=== PATIENT | male | born 1960 | race Two or more races ===

== ENCOUNTER 2019-02-16 11:14 | Emergency (ER) | payer OTHER ==
[~2019-02-16] VITALS: Ht 177.8 cm; Wt 9.1 kg
[~2019-02-16 11:14] MED LIST: HUMALOG100 U/ML; LANTUS100 U/ML; LOTREL 5/40 MG1 CAP; NEURONTIN800 MG
== END 2019-02-16 13:46 | disposition home or self-care (01) ==
LOC: ER 11:14
DX: S90.31XA Contusion of right foot, initial encounter (principal); E11.65 Type 2 diabetes mellitus with hyperglycemia; W23.0XXA Caught, crushed, jammed, or pinched between moving objects, initial encounter; Y93.89 Activity, other specified; Y92.414 Local residential or business street as the place of occurrence of the external cause; Y99.8 Other external cause status

== ENCOUNTER 2022-08-23 08:35 | Emergency (ER) | payer OTHER ==
[~2022-08-23] VITALS: Ht 177.8 cm; Wt 80.3 kg
[2022-08-23] MEDS ORDERED: LANTUS SOL100 UNIT/1 (08:45)
[2022-08-23] MEDS ORDERED: IRBESARTAN-HCT1 EAC1 PO (08:46)
== END 2022-08-23 09:16 | disposition home or self-care (01) ==
LOC: ER 08:35
DX: K52.9 Noninfective gastroenteritis and colitis, unspecified (principal); E11.9 Type 2 diabetes mellitus without complications; Z79.4 Long term (current) use of insulin; I10 Essential (primary) hypertension

== ENCOUNTER 2022-08-31 12:08 | Emergency (ER) | payer OTHER ==
[~2022-08-31] VITALS: Ht 175.3 cm; Wt 78.5 kg
[~2022-08-31 12:08] MED LIST changes: +IRBESARTAN-HCT1 EAC1 PO; +LANTUS SOL100 UNIT/1
[2022-08-31] MEDS ORDERED: LOSARTAN POTASS25 MG (12:40)
[2022-08-31] MEDS ORDERED: METRONIDAZOLE500 MG PO (15:48)
[2022-08-31] MEDS ORDERED: PEPCID AC20 MG PO (15:48)
== END 2022-08-31 15:56 | disposition home or self-care (01) ==
LOC: ER 12:08
DX: R19.7 Diarrhea, unspecified (principal); E11.9 Type 2 diabetes mellitus without complications; Z79.4 Long term (current) use of insulin; I10 Essential (primary) hypertension

== ENCOUNTER 2022-09-13 09:15 | Outpatient (CLI) | payer OTHER ==
[~2022-09-13 09:15] MED LIST changes: +LOSARTAN POTASS25 MG; +METRONIDAZOLE500 MG PO; +PEPCID AC20 MG PO
== END 2022-09-13 09:22 | disposition home or self-care (01) ==
LOC: SONOGRAMA 09:15
PROVIDERS: ATTEND Family Medicine
DX: N13.9 Obstructive and reflux uropathy, unspecified (principal); N18.4 Chronic kidney disease, stage 4 (severe)

== ENCOUNTER → 2023-06-30 | Emergency (ER) | payer OTHER ==
[~2023-06-30] VITALS: Ht 177.8 cm; Wt 77.1 kg
[~2023-06-30] MED LIST changes: +FUROsemide 20 MG/2 ML VIAL IV SCH; +KETOROLAC TROMETHAMINE 30 MG VIAL IV ONE; +LOSARTAN POTASSIUM 25 MG TABLET PO ONE; +RESTORIL7.5 MG; +TUSNEL LIQUID178 ML PO; +XANAX0.25 MG PO; +ZITHROMAX500 MG PO; +ZYRTEC10 M3 PO
[2023-06-30 10:52] LABS: MEAN CELL VOLUME 95.6 fL (80.0-100.00); MEAN CORPUSCULAR HEMOGLOBIN 31.8 pg (27.00-32.0); MEAN CORPUSCULAR HGB CONC 33.5 g/dl (32.0-36.0); PLATELET COUNT 287 K/uL (150-450); RED BLOOD COUNT 2.32 M/uL (4.00-6.00); RED CELL DISTRIBUTION WIDTH 14.5 % (11.5-14.5)
[2023-06-30 10:54] LABS: HEMATOCRIT 22.2 % (39.0-48.0); HEMOGLOBIN 7.4 g/dL (13-16.00)
[2023-06-30 11:19] LABS: INR 1.07; PARTIAL THROMBOPLASTIN TIME 32.9 SECONDS (22.0-34.0); PROTHROMBIN TIME 11.2 SECONDS (9.0-11.5)
[2023-06-30 11:24] LABS: BILIRUBIN TOTAL 0.4 mg/dL (0.3-1.2); CALCIUM 7.2 mg/dL (8.5-10.1); GFR 6.74; GLOBULINA 4.3 G/DL (2.4-3.5); MAGNESIUM 2.2 mg/dL (1.8-2.4); POTASSIUM 5.42 mEq/L (3.5-5.1); TOTAL PROTEIN 7.3 gm/dL (6.4-8.2)
[2023-06-30 11:39] LABS: URINE APPEARANCE Clear; URINE BILIRRUBIN Negative (NEGATIVE); URINE BLOOD Negative; URINE COLOR Yellow; URINE LEUKOCYTE Negative; URINE NITRATE Negative; URINE UROBILINOGEN 0.2 E.U./dl
[2023-06-30 11:40] LABS: URINE BACTERIA 17.6 uL (0.0-1933); URINE EPITHELIAL CELLS 2.1 uL (0.0-38.8); URINE RBC 6.1 uL (0.0-20.8); URINE WBC 22.5 uL (0.0-23.2)
[2023-06-30 11:43] LABS: CREATININE SERUM 8.18 mg/dL (0.70-1.30)
[2023-06-30 11:47] LABS: URINE GLUCOSE 250 MG/DL (NEGATIVE); URINE PROTEIN 300 (NEGATIVE)
== END | disposition designated cancer center or children's hospital (05) ==
LOC: ER 09:42
PROVIDERS: Emergency Medicine
DX: D64.9 Anemia, unspecified (principal); N18.6 End stage renal disease; Z99.2 Dependence on renal dialysis; Z20.822 Contact with and (suspected) exposure to COVID-19; I10 Essential (primary) hypertension; E11.9 Type 2 diabetes mellitus without complications; Z79.4 Long term (current) use of insulin
CPT/HCPCS: 36415; 71045; 93005; 96365; 99285; J1940